=== PATIENT | male | born 1980 | race Caucasian/White ===

== ENCOUNTER 2016-12-21 12:13 | Emergency (ER) | payer MEDICAID ==
[~2016-12-21] VITALS: Ht 190.5 cm; Wt 158.8 kg
[2016-12-21 12:35] VITALS: BP 142/76
[2016-12-21] MEDS ORDERED: KETOROLAC TROMETH 60MG/2ML VIAL IM ONE (14:00)
[2016-12-21] MEDS ORDERED: methylPREDNISolone SOD SUCC 125 MG/2 ML VL IM ONE (14:00)
== END 2016-12-21 14:35 | disposition home or self-care (01) ==
LOC: ER 12:16
DX: M10.032 Idiopathic gout, left wrist (principal); I10 Essential (primary) hypertension; F17.210 Nicotine dependence, cigarettes, uncomplicated
CPT/HCPCS: 96372; 99284; J1885; J2930; A4565

== ENCOUNTER 2017-10-11 16:27 | Emergency (ER) | payer MEDICAID | END 2017-10-11 16:35 | disposition left against medical advice (07) | LOC: ER 16:27 | DX: L02.611 Cutaneous abscess of right foot (principal); Z53.21 Procedure and treatment not carried out due to patient leaving prior to being seen by health care provider ==

== ENCOUNTER 2017-12-03 15:12 | Inpatient (IN) | payer MEDICAID ==
[~2017-12-03] VITALS: Ht 193 cm; Wt 146.9 kg
[2017-12-03] MEDS ORDERED: ACETAMINOPHEN 325 MG TAB PO ONE (23:45)
[2017-12-03 23:46] LABS: Basophils # (auto) 0.2 uL; Eosinophils # (auto) 0.1 uL; Eosinophils % (auto) 0.5 % (0.0-7.0); Hemoglobin 11.9 g/dL (13.5-17.5); Lymphocytes # (auto) 1.6 uL; Lymphocytes % (auto) 8.1 % (10.0-50.0); Mean Corpuscular Hemoglobin 27.5 pg (28.0-32.0); Mean Corpuscular Hgb Conc. 32.9 g/dL (32.0-36.0); Mean Corpuscular Volume 83.4 fL (80.0-100.0); Monocytes # (auto) 1.4 uL; Monocytes % (auto) 7.1 % (0.0-12.0); Neutrophils # (auto) 16.8 uL; Neutrophils % (auto) 83.3 % (37.0-80.0); Nucleated Red Blood Cells % 0.1 %; Platelet Count (auto) 332 10^3/uL (140-450); Red Blood Cells 4.31 10^6/uL (4.5-5.90); Red Cell Distribution Width 15.2 % (11.8-14.3); White Blood Cell 20.1 10^3/uL (4.4-10.8)
[2017-12-04 00:05] LABS: Alanine Aminotransferase 39 U/L (16-61); Albumin 2.9 g/dL (3.4-5.0); Anion Gap 4 (5-15); Aspartate Aminotransferase 21 U/L (15-37); BUN/Creatinine Ratio 8.9; Blood Urea Nitrogen 9 mg/dL (7-18); Calcium 8.5 mg/dL (8.5-10.1); Carbon Dioxide 30 mmol/L (21-32); Chloride 98 mmol/L (98-107); GFR African American 106 mL/min; GFR Non-African American 88 mL/min; Glucose 100 mg/dL (74-106); Magnesium 2.2 mg/dL (1.6-2.6); Potassium 3.7 mmol/L (3.5-5.1); Sodium 132 mmol/L (136-145)
[2017-12-04 00:10] LABS: Alkaline Phosphatase 181 U/L (45-117); Bilirubin, Total 1.3 mg/dL (0.2-1.0); Total Protein 8.2 g/dL (6.4-8.2)
[2017-12-04] MEDS ORDERED: SODIUM CHLORIDE 0.9% 1,000 ML IV ONE (00:45)
[2017-12-04] MEDS ORDERED: VANCOMYCIN 1GM/250ML 250 ML IV ONE (00:45)
[2017-12-04] MEDS ORDERED: cefTRIAXone 1GM/10ml IVPUSH 10 ML IV ONE (00:45)
[2017-12-04] MEDS ORDERED: MORPHINE SULFATE 4 MG/ML SYR/VIAL IV PRN (02:45)
[2017-12-04] MEDS ORDERED: SODIUM CHLORIDE 0.9% 1,000 ML IV SCH (02:45)
[2017-12-04] MEDS ORDERED: TEMAZEPAM 15 MG CAP PO PRN (02:45)
[2017-12-04] MEDS ORDERED: VANCOMYCIN PER PHARMACY 0 MG IV SCH (02:45)
[2017-12-04] MEDS ORDERED: ONDANSETRON HCL 4 MG/2 ML VIAL IV PRN (02:45)
[2017-12-04 04:10] LABS: Urine Bacteria FEW /hpf (None Seen); Urine Blood 1+ /uL (Negative); Urine Mucus FEW (None Seen); Urine Specific Gravity 1.019 (1.001-1.035); Urine WBC 3 /hpf (0 - 3)
[2017-12-04 09:01] VITALS: BP 102/50
[2017-12-04 09:44] VITALS: BP 102/50
[2017-12-04] MEDS ORDERED: VANCOMYCIN 1GM/250ML 250 ML IV SCH (10:00)
[2017-12-04] MEDS: FAMOTIDINE 20 MG TAB PO SCH ×2 (10:12→22:24)
[2017-12-04] MEDS: ENOXAPARIN SOD 40 MG/0.4 ML SYRINGE SC SCH (10:12)
[2017-12-04 13:00] VITALS: BP 149/80
[2017-12-04] MEDS ORDERED: CLINDAMYCIN 600MG IV 50 ML IV ONE (14:45)
[2017-12-04] MEDS ORDERED: POTASSIUM CHL 20 Meq TABLET PO ONE (15:00)
[2017-12-04] MEDS: ACETAMINOPHEN 325 MG TAB PO PRN ×2 (15:00→23:11)
[2017-12-04] MEDS: SODIUM CHLORIDE 0.9% 1,000 ML IV SCH ×2 (15:06→23:12)
[2017-12-04 17:08] VITALS: BP 126/60
[2017-12-04 18:02] LABS: Alcohol, Urine < 3.0 mg/dL (0-5); Barbiturate Scree,Urine NEGATIVE (NEGATIVE); Benzodiazephine Screen, Urine NEGATIVE (NEGATIVE); Cannabinoid Screen, Urine NEGATIVE (NEGATIVE); Cocaine Screen, Urine NEGATIVE (NEGATIVE); Opiate Scree,Urine NEGATIVE (NEGATIVE); Phencyclidine Screen, Urine NEGATIVE (NEGATIVE)
[2017-12-04 18:07] LABS: Amphetamine Screen, Urine POSITIVE (NEGATIVE)
[2017-12-04 20:00] VITALS: BP 63/134
[2017-12-04 22:00] VITALS: BP 134/63
[2017-12-04] MEDS: CLINDAMYCIN 600MG IV 50 ML IV SCH (23:05)
[2017-12-04] MEDS: cefTRIAXone 1GM/10ml IVPUSH 10 ML IV SCH (23:05)
[2017-12-05 05:00] VITALS: BP 113/63
[2017-12-05] MEDS: CLINDAMYCIN 600MG IV 50 ML IV SCH ×3 (05:46→21:44)
[2017-12-05] MEDS: ACETAMINOPHEN 325 MG TAB PO PRN ×2 (05:59→21:31)
[2017-12-05] MEDS: SODIUM CHLORIDE 0.9% 1,000 ML IV SCH ×3 (07:00→20:27)
[2017-12-05 07:03] LABS: Basophils # (auto) 0 uL; Basophils % (auto) 0.1 % (0.0-2.0); Eosinophils # (auto) 0.1 uL; Eosinophils % (auto) 0.3 % (0.0-7.0); Hematocrit 31.6 % (41.0-53.0); Hemoglobin 10.4 g/dL (13.5-17.5); Lymphocytes # (auto) 0.8 uL; Lymphocytes % (auto) 4.4 % (10.0-50.0); Mean Corpuscular Hemoglobin 27.4 pg (28.0-32.0); Mean Corpuscular Hgb Conc. 32.9 g/dL (32.0-36.0); Mean Corpuscular Volume 83.2 fL (80.0-100.0); Monocytes # (auto) 1.3 uL; Monocytes % (auto) 7.6 % (0.0-12.0); Neutrophils # (auto) 15.2 uL; Neutrophils % (auto) 87.6 % (37.0-80.0); Platelet Count (auto) 280 10^3/uL (140-450); Red Cell Distribution Width 14.9 % (11.8-14.3); White Blood Cell 17.3 10^3/uL (4.4-10.8)
[2017-12-05 07:35] LABS: Albumin 2.2 g/dL (3.4-5.0); BUN/Creatinine Ratio 9.6; Potassium 3.8 mmol/L (3.5-5.1); Total Protein 7.1 g/dL (6.4-8.2)
[2017-12-05 08:00] VITALS: BP 114/66
[2017-12-05] MEDS: ENOXAPARIN SOD 40 MG/0.4 ML SYRINGE SC SCH (10:29)
[2017-12-05] MEDS: FAMOTIDINE 20 MG TAB PO SCH ×2 (10:29→21:38)
[2017-12-05] MEDS: POTASSIUM CHL 20 Meq TABLET PO SCH (10:33)
[2017-12-05 12:10] VITALS: BP 132/70
[2017-12-05 12:52] VITALS: BP 115/43
[2017-12-05] MEDS: cefTRIAXone 1GM/10ml IVPUSH 10 ML IV SCH (21:38)
[2017-12-05] MEDS: ASCORBIC ACID 500 MG TAB PO SCH (21:38)
[2017-12-05] MEDS: MULTIPLE VITAMINS W/ MINERALS TAB PO SCH (21:38)
[2017-12-05] MEDS: PRO-STAT 64 30ML PO SCH (21:45)
[2017-12-05 22:00] VITALS: BP 110/48
[2017-12-06] VITALS (7 sets, daily range): BP systolic 97–151; BP diastolic 41–73
[2017-12-06] MEDS: HYDROcodone-ACET 5/325MG TAB PO PRN (04:44)
[2017-12-06] MEDS: CLINDAMYCIN 600MG IV 50 ML IV SCH ×3 (05:45→21:14)
[2017-12-06 05:52] LABS: Basophils # (auto) 0.1 uL; Basophils % (auto) 0.3 % (0.0-2.0); Eosinophils # (auto) 0.1 uL; Eosinophils % (auto) 0.8 % (0.0-7.0); Hematocrit 32.2 % (41.0-53.0); Hemoglobin 10.5 g/dL (13.5-17.5); Lymphocytes % (auto) 6.2 % (10.0-50.0); Mean Corpuscular Hemoglobin 27.1 pg (28.0-32.0); Mean Corpuscular Hgb Conc. 32.6 g/dL (32.0-36.0); Mean Corpuscular Volume 83.2 fL (80.0-100.0); Monocytes # (auto) 1.2 uL; Monocytes % (auto) 7.4 % (0.0-12.0); Neutrophils # (auto) 13.8 uL; Neutrophils % (auto) 85.3 % (37.0-80.0); Nucleated Red Blood Cells % 0.1 %; Platelet Count (auto) 279 10^3/uL (140-450); Red Blood Cells 3.87 10^6/uL (4.5-5.90); Red Cell Distribution Width 15.1 % (11.8-14.3); White Blood Cell 16.2 10^3/uL (4.4-10.8)
[2017-12-06 06:08] LABS: Calcium 8.2 mg/dL (8.5-10.1)
[2017-12-06] MEDS: ENOXAPARIN SOD 40 MG/0.4 ML SYRINGE SC SCH (09:24)
[2017-12-06] MEDS: SODIUM CHLORIDE 0.9% 1,000 ML IV SCH ×2 (09:24→15:21)
[2017-12-06] MEDS: FAMOTIDINE 20 MG TAB PO SCH ×2 (09:24→21:14)
[2017-12-06] MEDS: MULTIPLE VITAMINS W/ MINERALS TAB PO SCH ×2 (09:24→21:14)
[2017-12-06] MEDS: POTASSIUM CHL 20 Meq TABLET PO SCH (09:24)
[2017-12-06] MEDS: ASCORBIC ACID 500 MG TAB PO SCH ×2 (09:25→21:14)
[2017-12-06] MEDS: PRO-STAT 64 30ML PO SCH ×2 (09:28→21:15)
[2017-12-06] MEDS: ACETAMINOPHEN 325 MG TAB PO PRN (16:36)
[2017-12-06] MEDS: cefTRIAXone 1GM/10ml IVPUSH 10 ML IV SCH (21:14)
[2017-12-07] MEDS: SODIUM CHLORIDE 0.9% 1,000 ML IV SCH ×2 (02:46→14:45)
[2017-12-07 05:00] VITALS: BP_SYST 124; BP_SYST 128; BP_DIAS 59; BP_DIAS 63
[2017-12-07] MEDS: CLINDAMYCIN 600MG IV 50 ML IV SCH ×3 (05:12→22:02)
[2017-12-07 06:54] LABS: Basophils # (auto) 0.1 uL; Basophils % (auto) 0.3 % (0.0-2.0); Eosinophils # (auto) 0.1 uL; Eosinophils % (auto) 0.8 % (0.0-7.0); Hematocrit 35.4 % (41.0-53.0); Hemoglobin 11.6 g/dL (13.5-17.5); Lymphocytes # (auto) 1.1 uL; Lymphocytes % (auto) 6.2 % (10.0-50.0); Mean Corpuscular Hemoglobin 27.2 pg (28.0-32.0); Mean Corpuscular Hgb Conc. 32.8 g/dL (32.0-36.0); Monocytes # (auto) 1.5 uL; Monocytes % (auto) 8.2 % (0.0-12.0); Neutrophils # (auto) 15.3 uL; Neutrophils % (auto) 84.5 % (37.0-80.0); Platelet Count (auto) 297 10^3/uL (140-450); Red Blood Cells 4.26 10^6/uL (4.5-5.90); Red Cell Distribution Width 15.2 % (11.8-14.3); White Blood Cell 18.1 10^3/uL (4.4-10.8)
[2017-12-07 07:05] LABS: BUN/Creatinine Ratio 12.4; Calcium 8.4 mg/dL (8.5-10.1)
[2017-12-07 08:00] VITALS: BP 123/64
[2017-12-07 09:00] VITALS: BP 123/64
[2017-12-07] MEDS: POTASSIUM CHL 20 Meq TABLET PO SCH (09:53)
[2017-12-07] MEDS: MULTIPLE VITAMINS W/ MINERALS TAB PO SCH ×2 (09:54→22:03)
[2017-12-07] MEDS: FAMOTIDINE 20 MG TAB PO SCH ×2 (09:54→22:03)
[2017-12-07] MEDS: ASCORBIC ACID 500 MG TAB PO SCH ×2 (09:54→22:03)
[2017-12-07] MEDS: ENOXAPARIN SOD 40 MG/0.4 ML SYRINGE SC SCH (09:55)
[2017-12-07] MEDS: PRO-STAT 64 30ML PO SCH ×2 (10:00→22:03)
[2017-12-07 17:02] VITALS: BP 118/70
[2017-12-07 20:00] VITALS: BP 126/30
[2017-12-07 22:00] VITALS: BP 126/30
[2017-12-07] MEDS: cefTRIAXone 1GM/10ml IVPUSH 10 ML IV SCH (22:03)
[2017-12-08] VITALS (7 sets, daily range): BP systolic 110–127; BP diastolic 48–87
[2017-12-08] MEDS: SODIUM CHLORIDE 0.9% 1,000 ML IV SCH (04:10)
[2017-12-08] MEDS: CLINDAMYCIN 600MG IV 50 ML IV SCH ×3 (06:04→21:47)
[2017-12-08 06:16] LABS: Basophils # (auto) 0.1 uL; Basophils % (auto) 0.9 % (0.0-2.0); Eosinophils # (auto) 0.2 uL; Eosinophils % (auto) 2.1 % (0.0-7.0); Hematocrit 38.4 % (41.0-53.0); Hemoglobin 12.8 g/dL (13.5-17.5); Lymphocytes # (auto) 1.1 uL; Lymphocytes % (auto) 9.6 % (10.0-50.0); Mean Corpuscular Hgb Conc. 33.5 g/dL (32.0-36.0); Mean Corpuscular Volume 83.5 fL (80.0-100.0); Monocytes % (auto) 8.4 % (0.0-12.0); Neutrophils # (auto) 9.4 uL; Nucleated Red Blood Cells % 0.2 %; Platelet Count (auto) 301 10^3/uL (140-450); Red Cell Distribution Width 15.3 % (11.8-14.3); White Blood Cell 11.9 10^3/uL (4.4-10.8)
[2017-12-08] MEDS: ASCORBIC ACID 500 MG TAB PO SCH ×2 (09:10→21:47)
[2017-12-08] MEDS: FAMOTIDINE 20 MG TAB PO SCH ×2 (09:10→21:47)
[2017-12-08] MEDS: ENOXAPARIN SOD 40 MG/0.4 ML SYRINGE SC SCH (09:10)
[2017-12-08] MEDS: MULTIPLE VITAMINS W/ MINERALS TAB PO SCH ×2 (09:10→21:47)
[2017-12-08] MEDS: POTASSIUM CHL 20 Meq TABLET PO SCH (09:10)
[2017-12-08] MEDS: PRO-STAT 64 30ML PO SCH ×2 (09:11→22:00)
[2017-12-08] MEDS: cefTRIAXone 1GM/10ml IVPUSH 10 ML IV SCH (21:47)
[2017-12-09 05:00] VITALS: BP 117/61
[2017-12-09] MEDS: CLINDAMYCIN 600MG IV 50 ML IV SCH ×3 (06:08→22:48)
[2017-12-09 08:00] VITALS: BP 123/68
[2017-12-09 09:00] VITALS: BP 123/68
[2017-12-09] MEDS: ENOXAPARIN SOD 40 MG/0.4 ML SYRINGE SC SCH (09:54)
[2017-12-09] MEDS: MULTIPLE VITAMINS W/ MINERALS TAB PO SCH ×2 (09:54→22:48)
[2017-12-09] MEDS: FAMOTIDINE 20 MG TAB PO SCH ×2 (09:54→22:49)
[2017-12-09] MEDS: POTASSIUM CHL 20 Meq TABLET PO SCH (09:54)
[2017-12-09] MEDS: ASCORBIC ACID 500 MG TAB PO SCH ×2 (09:54→22:48)
[2017-12-09] MEDS: PRO-STAT 64 30ML PO SCH ×2 (09:55→22:49)
[2017-12-09 12:27] VITALS: BP 123/72
[2017-12-09 16:32] VITALS: BP 128/69
[2017-12-09 22:00] VITALS: BP 112/65
[2017-12-09] MEDS: cefTRIAXone 1GM/10ml IVPUSH 10 ML IV SCH (22:48)
[2017-12-10 05:00] VITALS: BP 120/65
[2017-12-10] MEDS: CLINDAMYCIN 600MG IV 50 ML IV SCH ×3 (05:27→20:57)
[2017-12-10 09:00] VITALS: BP 119/63
[2017-12-10] MEDS: MULTIPLE VITAMINS W/ MINERALS TAB PO SCH ×2 (09:30→20:58)
[2017-12-10] MEDS: ASCORBIC ACID 500 MG TAB PO SCH ×2 (09:30→20:58)
[2017-12-10] MEDS: ENOXAPARIN SOD 40 MG/0.4 ML SYRINGE SC SCH (09:30)
[2017-12-10] MEDS: FAMOTIDINE 20 MG TAB PO SCH ×2 (09:30→20:58)
[2017-12-10] MEDS: PRO-STAT 64 30ML PO SCH ×2 (09:31→22:08)
[2017-12-10] MEDS: HYDROcodone-ACET 5/325MG TAB PO PRN ×2 (09:41→14:49)
[2017-12-10 13:00] VITALS: BP 108/59
[2017-12-10 17:06] VITALS: BP 140/58
[2017-12-10] MEDS: cefTRIAXone 1GM/10ml IVPUSH 10 ML IV SCH (20:57)
[2017-12-10 22:00] VITALS: BP 129/54
[2017-12-11 05:00] VITALS: BP 118/59
[2017-12-11] MEDS: CLINDAMYCIN 600MG IV 50 ML IV SCH ×3 (05:15→21:20)
[2017-12-11 06:30] LABS: Basophils # (auto) 0 uL; Hemoglobin 13.9 g/dL (13.5-17.5); Lymphocytes # (auto) 1.7 uL; White Blood Cell 16.9 10^3/uL (4.4-10.8)
[2017-12-11 06:32] LABS: Basophils % (auto) 0.3 % (0.0-2.0); Eosinophils # (auto) 0.3 uL; Eosinophils % (auto) 1.8 % (0.0-7.0); Hematocrit 42.3 % (41.0-53.0); Mean Corpuscular Hemoglobin 27.4 pg (28.0-32.0); Mean Corpuscular Hgb Conc. 32.9 g/dL (32.0-36.0); Mean Corpuscular Volume 83.3 fL (80.0-100.0); Monocytes % (auto) 5.8 % (0.0-12.0); Neutrophils # (auto) 13.9 uL; Neutrophils % (auto) 82.1 % (37.0-80.0); Nucleated Red Blood Cells % 0.1 %; Platelet Count (auto) 455 10^3/uL (140-450); Red Blood Cells 5.08 10^6/uL (4.5-5.90); Red Cell Distribution Width 15.6 % (11.8-14.3)
[2017-12-11 06:34] LABS: BUN/Creatinine Ratio 16.5; Potassium 4.5 mmol/L (3.5-5.1)
[2017-12-11 08:00] VITALS: BP 115/54
[2017-12-11 09:00] VITALS: BP 115/54
[2017-12-11] MEDS: PRO-STAT 64 30ML PO SCH ×2 (10:00→21:25)
[2017-12-11] MEDS: ASCORBIC ACID 500 MG TAB PO SCH ×2 (10:02→21:20)
[2017-12-11] MEDS: MULTIPLE VITAMINS W/ MINERALS TAB PO SCH ×2 (10:03→21:20)
[2017-12-11] MEDS: ENOXAPARIN SOD 40 MG/0.4 ML SYRINGE SC SCH (10:03)
[2017-12-11] MEDS: FAMOTIDINE 20 MG TAB PO SCH ×2 (10:03→21:20)
[2017-12-11 13:00] VITALS: BP 126/37
[2017-12-11 17:21] VITALS: BP 119/66
[2017-12-11] MEDS: cefTRIAXone 1GM/10ml IVPUSH 10 ML IV SCH (21:20)
[2017-12-11 22:00] VITALS: BP 125/67
[2017-12-12 05:00] VITALS: BP 120/71
[2017-12-12] MEDS: CLINDAMYCIN 600MG IV 50 ML IV SCH ×2 (05:44→13:56)
[2017-12-12 08:00] VITALS: BP 103/54
[2017-12-12 09:00] VITALS: BP 103/54
[2017-12-12] MEDS: FAMOTIDINE 20 MG TAB PO SCH (09:22)
[2017-12-12] MEDS: ASCORBIC ACID 500 MG TAB PO SCH (09:22)
[2017-12-12] MEDS: PRO-STAT 64 30ML PO SCH (09:22)
[2017-12-12] MEDS: ENOXAPARIN SOD 40 MG/0.4 ML SYRINGE SC SCH (09:22)
[2017-12-12] MEDS: MULTIPLE VITAMINS W/ MINERALS TAB PO SCH (09:22)
[2017-12-12] MEDS ORDERED: HYDROcodone-ACET 5/325MG TAB PO PRN (11:30)
[2017-12-12] MEDS ORDERED: MORPHINE SULFATE 4 MG/ML SYR/VIAL IV PRN (11:30)
[2017-12-12] MEDS ORDERED: TEMAZEPAM 15 MG CAP PO PRN (11:30)
[2017-12-12 13:00] VITALS: BP 113/49
[2017-12-13] MEDS ORDERED: ENOXAPARIN SOD 40 MG/0.4 ML SYRINGE SC SCH (10:00)
== END 2017-12-12 15:15 | disposition short-term general hospital (02) | DRG 720 ==
LOC: ER 15:14 → OVERFLOW 15:15 → WEST WING 12-04 08:01
PROVIDERS: ADMIT Nurse Practitioner; ATTEND Internal Medicine
DX: A41.9 Sepsis, unspecified organism (principal); A48.0 Gas gangrene; E44.0 Moderate protein-calorie malnutrition; E11.52 Type 2 diabetes mellitus with diabetic peripheral angiopathy with gangrene; E11.621 Type 2 diabetes mellitus with foot ulcer; E11.69 Type 2 diabetes mellitus with other specified complication; E66.01 Morbid (severe) obesity due to excess calories; R59.1 Generalized enlarged lymph nodes; L02.611 Cutaneous abscess of right foot; S92.351A Displaced fracture of fifth metatarsal bone, right foot, initial encounter for closed fracture; X58.XXXA Exposure to other specified factors, initial encounter; M19.071 Primary osteoarthritis, right ankle and foot; F19.10 Other psychoactive substance abuse, uncomplicated; L97.519 Non-pressure chronic ulcer of other part of right foot with unspecified severity; L03.115 Cellulitis of right lower limb; M86.9 Osteomyelitis, unspecified; B95.62 Methicillin resistant Staphylococcus aureus infection as the cause of diseases classified elsewhere; Z68.39 Body mass index [BMI] 39.0-39.9, adult; M10.9 Gout, unspecified; I10 Essential (primary) hypertension; F17.210 Nicotine dependence, cigarettes, uncomplicated; Z59.0 Homelessness; Z82.49 Family history of ischemic heart disease and other diseases of the circulatory system; Z83.3 Family history of diabetes mellitus; Z84.89 Family history of other specified conditions; Y93.89 Activity, other specified; Y92.89 Other specified places as the place of occurrence of the external cause; Y99.8 Other external cause status
CPT/HCPCS: 36415; 71045; 73610; 73630; 73700; 80048; 80053; 80307; 81001; 83605; 83735; 83880; 84484; 85025; 85379; 85652; 86141; 87040; 87205; 93005; 93925; 93971; 96365; 96375; J3490

== ENCOUNTER 2017-12-18 12:58 | Inpatient (IN) | payer MEDICAID ==
[~2017-12-18] VITALS: Ht 190.5 cm; Wt 148.0 kg
[2017-12-18 13:24] VITALS: BP 124/96
[2017-12-18] MEDS ORDERED: INFLUENZA QUAD 2017-2018 0.5 ML SYRG IM ONE (15:03)
[2017-12-18] MEDS ORDERED: ACETAMINOPHEN 325 MG TAB PO PRN (15:15)
[2017-12-18] MEDS ORDERED: HYDROcodone-ACET 5/325MG TAB PO PRN (15:15)
[2017-12-18] MEDS ORDERED: ONDANSETRON HCL 4 MG/2 ML VIAL IV PRN (15:15)
[2017-12-18] MEDS ORDERED: DOCUSATE SOD 100 MG CAP PO PRN (15:15)
[2017-12-18] MEDS ORDERED: TEMAZEPAM 15 MG CAP PO PRN (15:15)
[2017-12-18 16:39] VITALS: BP 129/56
[2017-12-18] MEDS: AMPICILLIN INJ 1 GM in SODIUM CHL 0.9% 50 ML IV SCH (17:02)
[2017-12-18 21:37] VITALS: BP 131/98
[2017-12-18] MEDS ORDERED: CLINDAMYCIN 600MG IV 50 ML IV SCH (22:00)
[2017-12-19] MEDS: AMPICILLIN INJ 1 GM in SODIUM CHL 0.9% 50 ML IV SCH ×4 (00:22→17:37)
[2017-12-19 05:00] VITALS: BP 136/84
[2017-12-19 07:08] LABS: Basophils # (auto) 0 uL; Basophils % (auto) 0.6 % (0.0-2.0); Eosinophils # (auto) 0.1 uL; Eosinophils % (auto) 1.3 % (0.0-7.0); Hemoglobin 15.6 g/dL (13.5-17.5); Lymphocytes # (auto) 1.4 uL; Lymphocytes % (auto) 17.4 % (10.0-50.0); Mean Corpuscular Hemoglobin 27.5 pg (28.0-32.0); Mean Corpuscular Hgb Conc. 33.2 g/dL (32.0-36.0); Monocytes # (auto) 0.4 uL; Monocytes % (auto) 4.8 % (0.0-12.0); Neutrophils # (auto) 6.3 uL; Neutrophils % (auto) 75.9 % (37.0-80.0); Nucleated Red Blood Cells % 0.1 %; Platelet Count (auto) 439 10^3/uL (140-450); Red Blood Cells 5.67 10^6/uL (4.5-5.90); Red Cell Distribution Width 15.7 % (11.8-14.3); White Blood Cell 8.3 10^3/uL (4.4-10.8)
[2017-12-19 07:20] LABS: INR 1.04 (0.9-1.15); Partial Thromboplastin Time 30.3 sec (22.64-33.71); Prothrombin Time 11.3 sec (9.37-12.3)
[2017-12-19 07:48] LABS: Albumin 3.4 g/dL (3.4-5.0); BUN/Creatinine Ratio 10.5; Bilirubin, Total 0.6 mg/dL (0.2-1.0); Calcium 9.5 mg/dL (8.5-10.1); Potassium 4.8 mmol/L (3.5-5.1); Total Protein 8.8 g/dL (6.4-8.2)
[2017-12-19 08:55] VITALS: BP 114/75
[2017-12-19 12:37] VITALS: BP 146/75
[2017-12-19 17:01] VITALS: BP 121/76
[2017-12-19 22:00] VITALS: BP 132/68
[2017-12-20] MEDS: AMPICILLIN INJ 1 GM in SODIUM CHL 0.9% 50 ML IV SCH ×5 (03:09→23:33)
[2017-12-20 05:00] VITALS: BP 128/70
[2017-12-20 09:00] VITALS: BP 136/87
[2017-12-20 13:00] VITALS: BP 132/73
[2017-12-20] MEDS: LINEZOLID 600MG/300ML 300 ML IV SCH (13:39)
[2017-12-20] MEDS: MULTIPLE VITAMINS W/ MINERALS TAB PO SCH (15:39)
[2017-12-20] MEDS: ASCORBIC ACID 500 MG TAB PO SCH ×2 (15:39→21:12)
[2017-12-20 16:39] VITALS: BP 138/75
[2017-12-20 22:00] VITALS: BP 125/70
[2017-12-21] MEDS: LINEZOLID 600MG/300ML 300 ML IV SCH ×2 (00:34→12:49)
[2017-12-21] MEDS: AMPICILLIN INJ 1 GM in SODIUM CHL 0.9% 50 ML IV SCH ×4 (05:35→23:35)
[2017-12-21 05:43] VITALS: BP 152/74
[2017-12-21 07:58] LABS: Basophils # (auto) 0 uL; Basophils % (auto) 0.4 % (0.0-2.0); Eosinophils # (auto) 0.2 uL; Eosinophils % (auto) 2.7 % (0.0-7.0); Hematocrit 42.8 % (41.0-53.0); Hemoglobin 14.2 g/dL (13.5-17.5); Lymphocytes # (auto) 1.7 uL; Lymphocytes % (auto) 21.4 % (10.0-50.0); Mean Corpuscular Hemoglobin 27.4 pg (28.0-32.0); Mean Corpuscular Hgb Conc. 33.3 g/dL (32.0-36.0); Mean Corpuscular Volume 82.2 fL (80.0-100.0); Monocytes # (auto) 0.5 uL; Monocytes % (auto) 6.3 % (0.0-12.0); Neutrophils # (auto) 5.5 uL; Neutrophils % (auto) 69.2 % (37.0-80.0); Platelet Count (auto) 377 10^3/uL (140-450)
[2017-12-21 08:06] LABS: BUN/Creatinine Ratio 12.1; Calcium 8.9 mg/dL (8.5-10.1); Potassium 4.3 mmol/L (3.5-5.1)
[2017-12-21 09:00] VITALS: BP 124/83
[2017-12-21] MEDS: ASCORBIC ACID 500 MG TAB PO SCH ×2 (10:38→21:24)
[2017-12-21] MEDS: MULTIPLE VITAMINS W/ MINERALS TAB PO SCH (10:38)
[2017-12-21 13:00] VITALS: BP 122/69
[2017-12-21 17:15] VITALS: BP 120/72
[2017-12-21 22:00] VITALS: BP 124/67
[2017-12-22] MEDS: LINEZOLID 600MG/300ML 300 ML IV SCH (00:52)
[2017-12-22] MEDS: AMPICILLIN INJ 1 GM in SODIUM CHL 0.9% 50 ML IV SCH (05:36)
[2017-12-22 06:00] VITALS: BP 114/76
[2017-12-22 06:30] LABS: Basophils # (auto) 0 uL; Basophils % (auto) 0.2 % (0.0-2.0); Eosinophils # (auto) 0.2 uL; Eosinophils % (auto) 2.5 % (0.0-7.0); Hemoglobin 13.9 g/dL (13.5-17.5); Lymphocytes # (auto) 1.6 uL; Lymphocytes % (auto) 21.8 % (10.0-50.0); Mean Corpuscular Hemoglobin 27.7 pg (28.0-32.0); Mean Corpuscular Hgb Conc. 33.1 g/dL (32.0-36.0); Mean Corpuscular Volume 83.5 fL (80.0-100.0); Monocytes # (auto) 0.5 uL; Monocytes % (auto) 7.1 % (0.0-12.0); Neutrophils % (auto) 68.4 % (37.0-80.0); Nucleated Red Blood Cells % 0.1 %; Platelet Count (auto) 317 10^3/uL (140-450); Red Blood Cells 5.04 10^6/uL (4.5-5.90); Red Cell Distribution Width 15.8 % (11.8-14.3); White Blood Cell 7.3 10^3/uL (4.4-10.8)
[2017-12-22 06:41] LABS: BUN/Creatinine Ratio 12.9; Calcium 9.1 mg/dL (8.5-10.1); Potassium 4.5 mmol/L (3.5-5.1)
[2017-12-22 09:01] VITALS: BP 147/88
[2017-12-22] MEDS ORDERED: VANCOMYCIN PER PHARMACY 0 MG IV SCH (10:15)
[2017-12-22] MEDS: ASCORBIC ACID 500 MG TAB PO SCH (10:47)
[2017-12-22] MEDS: MULTIPLE VITAMINS W/ MINERALS TAB PO SCH (10:48)
[2017-12-22] MEDS: VANCOMYCIN 1,250 MG in D5W 5% 250 ML IV SCH ×2 (10:51→19:00)
[2017-12-22 13:46] VITALS: BP 144/66
[2017-12-22 13:47] VITALS: BP_SYST 110; BP_SYST 144; BP_DIAS 64; BP_DIAS 66
[2017-12-22 14:06] VITALS: BP 144/66
[2017-12-22] MEDS ORDERED: LIDOCAINE 1% HCL (LOCAL ANESTH.) INJ 20ML MDV ID ONE (15:45)
[2017-12-22 18:00] VITALS: BP 147/89
[2017-12-22] MEDS ORDERED: SODIUM CHLOR 0.9% PF (SALINE LOCK) 10ML VIAL IV SCH (22:00)
== END 2017-12-22 20:15 | DRG 383 ==
LOC: WEST WING 12:58
PROVIDERS: ADMIT Family Medicine; ATTEND Internal Medicine
PROC: 02HV33Z Insertion of Infusion Device into Superior Vena Cava, Percutaneous Approach (ICD-10-PCS; principal; 2017-12-22)
DX: L02.611 Cutaneous abscess of right foot (principal); E11.69 Type 2 diabetes mellitus with other specified complication; Z68.41 Body mass index [BMI] 40.0-44.9, adult; M86.8X7 Other osteomyelitis, ankle and foot; E66.01 Morbid (severe) obesity due to excess calories; B95.8 Unspecified staphylococcus as the cause of diseases classified elsewhere; B95.5 Unspecified streptococcus as the cause of diseases classified elsewhere; F19.10 Other psychoactive substance abuse, uncomplicated; Z16.29 Resistance to other single specified antibiotic; Z82.49 Family history of ischemic heart disease and other diseases of the circulatory system; Z83.3 Family history of diabetes mellitus
CPT/HCPCS: 36415; 36569; 71045; 78315; 80048; 80053; 85025; 85610; 85652; 85730; 87081; J7060

== ENCOUNTER 2018-10-30 13:47 | Inpatient (IN) | payer MEDICAID ==
[~2018-10-30] VITALS: Ht 190.5 cm; Wt 162.9 kg
[2018-10-30 16:07] LABS: Basophils # (auto) 0 uL; Basophils % (auto) 0.4 % (0.0-2.0); Eosinophils # (auto) 0 uL; Eosinophils % (auto) 0.3 % (0.0-7.0); Hematocrit 37.9 % (41.0-53.0); Hemoglobin 12.9 g/dL (13.5-17.5); Lymphocytes # (auto) 0.5 uL; Lymphocytes % (auto) 4.6 % (10.0-50.0); Mean Corpuscular Hemoglobin 28.9 pg (28.0-32.0); Mean Corpuscular Hgb Conc. 34.2 g/dL (32.0-36.0); Mean Corpuscular Volume 84.5 fL (80.0-100.0); Monocytes # (auto) 1.1 uL; Monocytes % (auto) 9.5 % (0.0-12.0); Neutrophils # (auto) 9.9 uL; Neutrophils % (auto) 85.2 % (37.0-80.0); Platelet Count (auto) 246 10^3/uL (140-450); Red Blood Cells 4.49 10^6/uL (4.5-5.90); Red Cell Distribution Width 14.8 % (11.8-14.3); White Blood Cell 11.6 10^3/uL (4.4-10.8)
[2018-10-30 16:17] LABS: Albumin 3.2 g/dL (3.4-5.0); Anion Gap 5 (5-15); Blood Urea Nitrogen 18 mg/dL (7-18); Calcium 8.5 mg/dL (8.5-10.1); Carbon Dioxide 28 mmol/L (21-32); Chloride 96 mmol/L (98-107); Glucose 124 mg/dL (74-106); Potassium 4.1 mmol/L (3.5-5.1); Sodium 129 mmol/L (136-145)
[2018-10-30 16:20] LABS: Alanine Aminotransferase 49 U/L (16-61); Alkaline Phosphatase 157 U/L (45-117); Aspartate Aminotransferase 73 U/L (15-37); BUN/Creatinine Ratio 12.2; Bilirubin, Total 0.9 mg/dL (0.2-1.0); GFR Non-African American 56 mL/min; Total Protein 8.6 g/dL (6.4-8.2)
[2018-10-30 16:27] LABS: GFR African American > 60 mL/min
[2018-10-30] MEDS ORDERED: SODIUM CHLORIDE 0.9% 1,000 ML IV ONE ×2 (17:06)
[2018-10-30] MEDS ORDERED: VANCOMYCIN 1GM/250ML 250 ML IV ONE (17:15)
[2018-10-30] MEDS ORDERED: PIPERACILLIN-TAZOB 3.375GM 100 ML IV ONE (17:15)
[2018-10-30] MEDS ORDERED: MORPHINE SULFATE 10 MG/ML INJ 1ML SDV IV PRN ×2 (17:45)
[2018-10-30] MEDS ORDERED: VANCOMYCIN PER PHARMACY 0 MG IV SCH (17:45)
[2018-10-30] MEDS ORDERED: ONDANSETRON HCL 4 MG/2 ML VIAL IV PRN (17:45)
[2018-10-30] MEDS ORDERED: NITROGLYCERIN 0.4 MG SL TAB SL PRN (17:45)
[2018-10-30] MEDS ORDERED: SODIUM CHLORIDE 0.9% 1,000 ML IV SCH (17:45)
[2018-10-30] MEDS: ACETAMINOPHEN 500 MG TAB PO PRN (19:36)
[2018-10-30 20:00] VITALS: BP 136/56
[2018-10-30 22:00] VITALS: BP 128/54
[2018-10-31] MEDS: PIPERACILLIN-TAZOB 3.375GM 100 ML IV SCH ×5 (00:44→23:50)
[2018-10-31] MEDS: VANCOMYCIN 1GM/250ML 250 ML IV SCH ×3 (03:02→17:07)
[2018-10-31 05:00] VITALS: BP 111/67
[2018-10-31 06:42] LABS: Basophils # (auto) 0 uL; Basophils % (auto) 0.3 % (0.0-2.0); Eosinophils # (auto) 0.1 uL; Eosinophils % (auto) 1.3 % (0.0-7.0); Hematocrit 33.9 % (41.0-53.0); Hemoglobin 11.8 g/dL (13.5-17.5); Lymphocytes % (auto) 11.9 % (10.0-50.0); Mean Corpuscular Hemoglobin 29.4 pg (28.0-32.0); Mean Corpuscular Hgb Conc. 34.8 g/dL (32.0-36.0); Mean Corpuscular Volume 84.4 fL (80.0-100.0); Monocytes # (auto) 1.3 uL; Monocytes % (auto) 15.9 % (0.0-12.0); Neutrophils # (auto) 5.9 uL; Neutrophils % (auto) 70.6 % (37.0-80.0); Platelet Count (auto) 206 10^3/uL (140-450); Red Blood Cells 4.01 10^6/uL (4.5-5.90); Red Cell Distribution Width 15.1 % (11.8-14.3); White Blood Cell 8.3 10^3/uL (4.4-10.8)
[2018-10-31 06:46] LABS: Partial Thromboplastin Time 35.2 sec (23.78-33.04); Prothrombin Time 10.7 sec (9.27-12.13)
[2018-10-31 06:52] LABS: Chloride 102 mmol/L (98-107); Potassium 3.9 mmol/L (3.5-5.1); Sodium 134 mmol/L (136-145)
[2018-10-31 06:59] LABS: Anion Gap 6 (5-15); Blood Urea Nitrogen 15 mg/dL (7-18); Calcium 7.9 mg/dL (8.5-10.1); Carbon Dioxide 26 mmol/L (21-32); Cholesterol 131 mg/dL (< 200); GFR African American > 60 mL/min; GFR Non-African American > 60 mL/min; Glucose 111 mg/dL (74-106); HDL Cholesterol 21 mg/dL (40-59); LDL Cholesterol 102 mg/dL (< 100); Triglycerides 118 mg/dL (< 150)
[2018-10-31 08:00] VITALS: BP 135/71
[2018-10-31 08:52] VITALS: BP_SYST 135; BP_SYST 147; BP_DIAS 71; BP_DIAS 76
[2018-10-31] MEDS ORDERED: ALPRAZolam 0.25 MG TAB PO PRN (09:00)
[2018-10-31] MEDS ORDERED: CALCIUM GLUC 4.65meq/50ml D5AE 50 ML IV ONE (09:45)
[2018-10-31] MEDS: amLODIPine BESYLATE 5 MG TAB PO SCH (09:50)
[2018-10-31] MEDS: HYDROcodone-ACET 5/325MG TAB PO PRN (09:56)
[2018-10-31] MEDS: SODIUM CHLORIDE 0.9% 1,000 ML IV SCH ×2 (09:58→17:07)
[2018-10-31 13:00] VITALS: BP 117/60
[2018-10-31 17:00] VITALS: BP 140/62
[2018-10-31] MEDS: Ensure Enlive Strawberry 8oz Bottle PO SCH (18:26)
[2018-10-31] MEDS: CLOTRIMAZOLE 1 % CREAM 15GM TOP SCH (21:51)
[2018-10-31 22:00] VITALS: BP 135/61
[2018-11-01] MEDS: SODIUM CHLORIDE 0.9% 1,000 ML IV SCH ×3 (01:00→17:00)
[2018-11-01] MEDS: VANCOMYCIN 1GM/250ML 250 ML IV SCH ×3 (02:07→17:20)
[2018-11-01 04:51] VITALS: BP 138/70
[2018-11-01] MEDS: PIPERACILLIN-TAZOB 3.375GM 100 ML IV SCH ×4 (05:18→23:33)
[2018-11-01 06:57] LABS: Basophils # (auto) 0 uL; Basophils % (auto) 0.3 % (0.0-2.0); Eosinophils # (auto) 0.2 uL; Eosinophils % (auto) 1.8 % (0.0-7.0); Hematocrit 34.3 % (41.0-53.0); Hemoglobin 11.6 g/dL (13.5-17.5); Lymphocytes # (auto) 1.1 uL; Lymphocytes % (auto) 11.4 % (10.0-50.0); Mean Corpuscular Hemoglobin 28.6 pg (28.0-32.0); Mean Corpuscular Hgb Conc. 33.8 g/dL (32.0-36.0); Mean Corpuscular Volume 84.5 fL (80.0-100.0); Monocytes # (auto) 1.2 uL; Neutrophils # (auto) 7.2 uL; Neutrophils % (auto) 74.5 % (37.0-80.0); Platelet Count (auto) 247 10^3/uL (140-450); Red Blood Cells 4.06 10^6/uL (4.5-5.90); Red Cell Distribution Width 14.8 % (11.8-14.3); White Blood Cell 9.7 10^3/uL (4.4-10.8)
[2018-11-01 07:14] LABS: Anion Gap 9 (5-15); BUN/Creatinine Ratio 13.5; Blood Urea Nitrogen 14 mg/dL (7-18); Calcium 8.1 mg/dL (8.5-10.1); Carbon Dioxide 24 mmol/L (21-32); Chloride 101 mmol/L (98-107); GFR African American > 60 mL/min; GFR Non-African American > 60 mL/min; Glucose 100 mg/dL (74-106); Potassium 4.1 mmol/L (3.5-5.1); Sodium 134 mmol/L (136-145)
[2018-11-01] MEDS: Ensure Enlive Strawberry 8oz Bottle PO SCH ×2 (07:58→18:42)
[2018-11-01 08:00] VITALS: BP 141/70
[2018-11-01 08:30] VITALS: BP 141/70
[2018-11-01] MEDS: CLOTRIMAZOLE 1 % CREAM 15GM TOP SCH ×2 (09:26→21:05)
[2018-11-01] MEDS: amLODIPine BESYLATE 5 MG TAB PO SCH (09:27)
[2018-11-01 12:30] VITALS: BP 131/69
[2018-11-01] MEDS: HYDROcodone-ACET 5/325MG TAB PO PRN ×2 (12:47→18:43)
[2018-11-01] MEDS ORDERED: LIDOCAINE 1% (LOCAL ANESTH.) PF 5ml SDV ID ONE (17:00)
[2018-11-01 17:36] VITALS: BP 146/77
[2018-11-01] MEDS: ACETAMINOPHEN 500 MG TAB PO PRN (21:01)
[2018-11-01] MEDS: CLINDAMYCIN 600MG IV 50 ML IV SCH (21:02)
[2018-11-01] MEDS: SODIUM CHLOR 0.9% PF (SALINE LOCK) 10ML VIAL/SYR IV SCH (21:06)
[2018-11-01 21:39] VITALS: BP 147/70
[2018-11-02] MEDS: SODIUM CHLORIDE 0.9% 1,000 ML IV SCH ×3 (01:00→17:00)
[2018-11-02] MEDS: VANCOMYCIN 1GM/250ML 250 ML IV SCH ×2 (02:32→09:11)
[2018-11-02 05:00] VITALS: BP 133/70
[2018-11-02] MEDS: CLINDAMYCIN 600MG IV 50 ML IV SCH ×3 (05:00→22:21)
[2018-11-02] MEDS: PIPERACILLIN-TAZOB 3.375GM 100 ML IV SCH ×2 (06:27→11:17)
[2018-11-02 06:45] LABS: Basophils # (auto) 0 uL; Basophils % (auto) 0.1 % (0.0-2.0); Eosinophils # (auto) 0.2 uL; Eosinophils % (auto) 1.8 % (0.0-7.0); Hematocrit 36.3 % (41.0-53.0); Hemoglobin 12.4 g/dL (13.5-17.5); Lymphocytes # (auto) 1.2 uL; Lymphocytes % (auto) 8.8 % (10.0-50.0); Mean Corpuscular Hemoglobin 28.7 pg (28.0-32.0); Mean Corpuscular Hgb Conc. 34.1 g/dL (32.0-36.0); Mean Corpuscular Volume 84.3 fL (80.0-100.0); Monocytes % (auto) 7.2 % (0.0-12.0); Neutrophils # (auto) 10.9 uL; Neutrophils % (auto) 82.1 % (37.0-80.0); Nucleated Red Blood Cells % 0.1 %; Platelet Count (auto) 315 10^3/uL (140-450); Red Cell Distribution Width 14.7 % (11.8-14.3); White Blood Cell 13.3 10^3/uL (4.4-10.8)
[2018-11-02 07:08] LABS: Chloride 99 mmol/L (98-107); Potassium 4.4 mmol/L (3.5-5.1); Sodium 132 mmol/L (136-145)
[2018-11-02 07:13] LABS: Anion Gap 7 (5-15); BUN/Creatinine Ratio 11.3; Blood Urea Nitrogen 11 mg/dL (7-18); Calcium 8.3 mg/dL (8.5-10.1); Carbon Dioxide 26 mmol/L (21-32); GFR African American > 60 mL/min; GFR Non-African American > 60 mL/min; Glucose 107 mg/dL (74-106)
[2018-11-02 08:00] VITALS: BP 146/72
[2018-11-02] MEDS: Ensure Enlive Strawberry 8oz Bottle PO SCH ×2 (08:56→17:38)
[2018-11-02] MEDS: ACETAMINOPHEN 500 MG TAB PO PRN (09:11)
[2018-11-02] MEDS: amLODIPine BESYLATE 5 MG TAB PO SCH (09:11)
[2018-11-02] MEDS: SODIUM CHLOR 0.9% PF (SALINE LOCK) 10ML VIAL/SYR IV SCH ×2 (09:15→22:21)
[2018-11-02] MEDS: CLOTRIMAZOLE 1 % CREAM 15GM TOP SCH ×2 (09:15→22:43)
[2018-11-02 09:47] VITALS: BP 146/72
[2018-11-02] MEDS: DAKINS QUARTER STR 0.125% (NaHypochlorite) 473 ML TOPICAL SOL TOP SCH (11:17)
[2018-11-02 13:41] VITALS: BP 118/64
[2018-11-02] MEDS: cefTRIAXone 1GM/50ML D5W 50 ML IV SCH (15:07)
[2018-11-02 17:22] VITALS: BP 123/73
[2018-11-02] MEDS: VANCOMYCIN 1,250 MG in D5W 5% 250 ML IV SCH (17:38)
[2018-11-02 22:00] VITALS: BP 119/58
[2018-11-03] MEDS: VANCOMYCIN 1,250 MG in D5W 5% 250 ML IV SCH ×3 (00:26→17:00)
[2018-11-03] MEDS: SODIUM CHLORIDE 0.9% 1,000 ML IV SCH ×3 (00:26→17:00)
[2018-11-03] MEDS: ACETAMINOPHEN 500 MG TAB PO PRN (01:31)
[2018-11-03 06:05] VITALS: BP 131/65
[2018-11-03] MEDS: CLINDAMYCIN 600MG IV 50 ML IV SCH ×3 (06:09→21:47)
[2018-11-03 06:35] LABS: Basophils # (auto) 0.1 uL; Basophils % (auto) 0.7 % (0.0-2.0); Eosinophils # (auto) 0.3 uL; Eosinophils % (auto) 1.9 % (0.0-7.0); Hematocrit 36.2 % (41.0-53.0); Hemoglobin 12.1 g/dL (13.5-17.5); Lymphocytes # (auto) 1.3 uL; Lymphocytes % (auto) 9.2 % (10.0-50.0); Mean Corpuscular Hemoglobin 28.2 pg (28.0-32.0); Mean Corpuscular Hgb Conc. 33.4 g/dL (32.0-36.0); Mean Corpuscular Volume 84.5 fL (80.0-100.0); Monocytes % (auto) 7.4 % (0.0-12.0); Neutrophils # (auto) 11.2 uL; Neutrophils % (auto) 80.8 % (37.0-80.0); Platelet Count (auto) 347 10^3/uL (140-450); Red Blood Cells 4.28 10^6/uL (4.5-5.90); Red Cell Distribution Width 14.6 % (11.8-14.3); White Blood Cell 13.9 10^3/uL (4.4-10.8)
[2018-11-03 06:41] LABS: Anion Gap 8 (5-15); BUN/Creatinine Ratio 12.6; Blood Urea Nitrogen 12 mg/dL (7-18); Calcium 8.5 mg/dL (8.5-10.1); Carbon Dioxide 25 mmol/L (21-32); Chloride 100 mmol/L (98-107); GFR African American > 60 mL/min; GFR Non-African American > 60 mL/min; Glucose 102 mg/dL (74-106); Potassium 4.2 mmol/L (3.5-5.1); Sodium 133 mmol/L (136-145)
[2018-11-03] MEDS: Ensure Enlive Strawberry 8oz Bottle PO SCH ×2 (08:00→18:00)
[2018-11-03 08:04] LABS: INR 1.02 (0.9-1.15); Partial Thromboplastin Time 29.4 sec (23.78-33.04); Prothrombin Time 10.9 sec (9.27-12.13)
[2018-11-03 09:00] VITALS: BP 98/43
[2018-11-03] MEDS: cefTRIAXone 1GM/50ML D5W 50 ML IV SCH (09:00)
[2018-11-03] MEDS: amLODIPine BESYLATE 5 MG TAB PO SCH (10:00)
[2018-11-03] MEDS: CLOTRIMAZOLE 1 % CREAM 15GM TOP SCH ×2 (10:00→22:00)
[2018-11-03] MEDS: DAKINS QUARTER STR 0.125% (NaHypochlorite) 473 ML TOPICAL SOL TOP SCH (10:00)
[2018-11-03] MEDS: SODIUM CHLOR 0.9% PF (SALINE LOCK) 10ML VIAL/SYR IV SCH ×2 (10:15→21:48)
[2018-11-03 13:39] VITALS: BP 126/45
[2018-11-03 17:48] VITALS: BP 110/70
[2018-11-03 20:00] VITALS: BP 131/67
[2018-11-03 22:00] VITALS: BP 131/67
[2018-11-04] MEDS: VANCOMYCIN 1,250 MG in D5W 5% 250 ML IV SCH ×2 (01:10→09:00)
[2018-11-04] MEDS: SODIUM CHLORIDE 0.9% 1,000 ML IV SCH ×2 (01:10→09:00)
[2018-11-04 05:39] VITALS: BP 118/71
[2018-11-04] MEDS: CLINDAMYCIN 600MG IV 50 ML IV SCH (06:16)
[2018-11-04 07:13] LABS: Basophils # (auto) 0.1 uL; Basophils % (auto) 0.7 % (0.0-2.0); Eosinophils # (auto) 0.3 uL; Eosinophils % (auto) 1.9 % (0.0-7.0); Hematocrit 37.1 % (41.0-53.0); Hemoglobin 12.7 g/dL (13.5-17.5); Lymphocytes # (auto) 1.5 uL; Mean Corpuscular Hemoglobin 28.9 pg (28.0-32.0); Mean Corpuscular Hgb Conc. 34.2 g/dL (32.0-36.0); Mean Corpuscular Volume 84.5 fL (80.0-100.0); Monocytes % (auto) 7.3 % (0.0-12.0); Neutrophils # (auto) 10.8 uL; Neutrophils % (auto) 79.1 % (37.0-80.0); Platelet Count (auto) 413 10^3/uL (140-450); Red Blood Cells 4.39 10^6/uL (4.5-5.90); Red Cell Distribution Width 15.1 % (11.8-14.3); White Blood Cell 13.6 10^3/uL (4.4-10.8)
[2018-11-04 07:43] LABS: Chloride 102 mmol/L (98-107); Potassium 4.3 mmol/L (3.5-5.1); Sodium 134 mmol/L (136-145)
[2018-11-04 07:58] LABS: Anion Gap 8 (5-15); BUN/Creatinine Ratio 14.9; Blood Urea Nitrogen 15 mg/dL (7-18); Calcium 8.7 mg/dL (8.5-10.1); Carbon Dioxide 24 mmol/L (21-32); GFR African American > 60 mL/min; GFR Non-African American > 60 mL/min; Glucose 107 mg/dL (74-106)
[2018-11-04] MEDS ORDERED: ONDANSETRON HCL 4 MG/2 ML VIAL ONE (08:00)
[2018-11-04] MEDS: Ensure Enlive Strawberry 8oz Bottle PO SCH (08:00)
[2018-11-04] MEDS ORDERED: PROPOFOL 10 MG/ML 20 ML IV ONE (08:00)
[2018-11-04] MEDS ORDERED: MIDAZOLAM HCL 1MG/1ML-2 ML VIAL ONE (08:00)
[2018-11-04] MEDS ORDERED: fentaNYL CITRATE 100 MCG/2 ML VL ONE (08:00)
[2018-11-04] MEDS ORDERED: SODIUM CHLORIDE LOCK 10 ML ONE (08:00)
[2018-11-04] MEDS ORDERED: LIDOCAINE 1% HCL (LOCAL ANESTH.) INJ 20ML MDV ONE (08:33)
[2018-11-04] MEDS ORDERED: BACITRACIN INJ 50000 UNIT VIAL ONE ×2 (08:33→09:40)
[2018-11-04] MEDS ORDERED: LIDOCAINE HCL 2% TOP JELLY 5ML TOP ONE (08:45)
[2018-11-04] MEDS ORDERED: MEPERIDINE HCL (50 MG/ML) 1 ML VIAL ONE (08:47)
[2018-11-04] MEDS ORDERED: SUCCINYLCHOLINE CHLORIDE 20 MG/ML 10ML VIAL IV ONE (08:50)
[2018-11-04] MEDS ORDERED: ROCURONIUM 10MG/ML 10ML VIAL IV ONE (08:50)
[2018-11-04 09:00] VITALS: BP 122/71
[2018-11-04] MEDS: DAKINS QUARTER STR 0.125% (NaHypochlorite) 473 ML TOPICAL SOL TOP SCH (10:00)
[2018-11-04] MEDS: CLOTRIMAZOLE 1 % CREAM 15GM TOP SCH (10:00)
[2018-11-04] MEDS: amLODIPine BESYLATE 5 MG TAB PO SCH (10:00)
[2018-11-04] MEDS ORDERED: HYDROmorphone HCL 2 MG/ML VL IV PRN (10:15)
[2018-11-04] MEDS ORDERED: ACCU-CHEK COMFORT CURVE STRIP VI ONE (10:15)
[2018-11-04] MEDS ORDERED: METOCLOPRAMIDE HCL 5MG/ml INJ 2ml VIAL IV ONE (10:15)
[2018-11-04] MEDS: cefTRIAXone 1GM/50ML D5W 50 ML IV SCH (11:42)
[2018-11-04] MEDS: SODIUM CHLOR 0.9% PF (SALINE LOCK) 10ML VIAL/SYR IV SCH (11:42)
[2018-11-04 13:00] VITALS: BP 124/68
[2018-11-04] MEDS: HYDROcodone-ACET 5/325MG TAB PO PRN (14:38)
[2018-11-04 17:00] VITALS: BP 133/65
== END 2018-11-04 18:45 | DRG 710 ==
LOC: ER 13:47 → OVERFLOW 17:51 → EAST 18:07
PROVIDERS: ADMIT Nurse Practitioner Acute Care; ATTEND Internal Medicine
PROC: 02HV33Z Insertion of Infusion Device into Superior Vena Cava, Percutaneous Approach (ICD-10-PCS; 2018-11-01)
PROC: 0QBL0ZZ Excision of Right Tarsal, Open Approach (ICD-10-PCS; principal; 2018-11-04 08:50)
DX: A41.9 Sepsis, unspecified organism (principal); N17.0 Acute kidney failure with tubular necrosis; E44.1 Mild protein-calorie malnutrition; E66.01 Morbid (severe) obesity due to excess calories; L03.115 Cellulitis of right lower limb; E11.621 Type 2 diabetes mellitus with foot ulcer; E83.51 Hypocalcemia; E87.1 Hypo-osmolality and hyponatremia; B35.1 Tinea unguium; M86.8X7 Other osteomyelitis, ankle and foot; L97.409 Non-pressure chronic ulcer of unspecified heel and midfoot with unspecified severity; I10 Essential (primary) hypertension; E86.0 Dehydration; Z71.6 Tobacco abuse counseling; M14.60 Charcot's joint, unspecified site; L02.91 Cutaneous abscess, unspecified; F19.10 Other psychoactive substance abuse, uncomplicated; B35.3 Tinea pedis; Z68.41 Body mass index [BMI] 40.0-44.9, adult; E11.69 Type 2 diabetes mellitus with other specified complication; F17.210 Nicotine dependence, cigarettes, uncomplicated; L97.519 Non-pressure chronic ulcer of other part of right foot with unspecified severity; Z59.0 Homelessness; Z82.49 Family history of ischemic heart disease and other diseases of the circulatory system; Z83.3 Family history of diabetes mellitus
CPT/HCPCS: 36415; 36569; 71045; 73590; 73610; 73630; 73700; 80048; 80053; 80061; 80202; 82962; 83036; 83605; 85025; 85610; 85652; 85730; 86141; 86850; 86900; 86901; 87040; 87075; 87077; 87186; 87205; 93926; 93970; 96374; A6257; G0378; J0330; J0610; J0696; J2001; J2250; J2405; J2543; J2704; J3490; J7060

== ENCOUNTER 2018-11-30 09:20 | Inpatient (IN) | payer MEDICAID | END 2018-12-04 16:45 | LOC: ER 09:20 → OVERFLOW 14:53 → WEST WING 21:03 | PROC: 0Y6M0Z8 Detachment at Right Foot, Complete 5th Ray, Open Approach (ICD-10-PCS; principal; 2018-12-02 16:19) | DX: M86.171 Other acute osteomyelitis, right ankle and foot (principal); E66.01 Morbid (severe) obesity due to excess calories; I10 Essential (primary) hypertension; M10.9 Gout, unspecified; J98.11 Atelectasis; Z82.49 Family history of ischemic heart disease and other diseases of the circulatory system; L08.9 Local infection of the skin and subcutaneous tissue, unspecified ==

== ENCOUNTER 2018-12-09 08:25 | Emergency (ER) | payer MEDICAID ==
[~2018-12-09] VITALS: Ht 190.5 cm; Wt 136.5 kg
[2018-12-09 08:31] VITALS: BP 145/80
== END 2018-12-09 17:35 | disposition left against medical advice (07) ==
LOC: ER 08:25
DX: M79.671 Pain in right foot (principal); Z53.21 Procedure and treatment not carried out due to patient leaving prior to being seen by health care provider